=== PATIENT | male | born 1965 | race Caucasian/White ===

== ENCOUNTER 2016-07-30 06:32 | Emergency (ER) | payer BC ==
[2016-07-30] MEDS ORDERED: Zofran 4 MG/2 ML VIAL IV ONE (06:43)
[2016-07-30] MEDS ORDERED: Sodium Chloride 0.9% 1000 ML 1,000 ML IV STA (06:43)
[2016-07-30] MEDS ORDERED: TORAdol 30 mg Injection IV ONE (06:43)
--- NOTE | 2016-07-30 06:49 | ERPHSYRPT ---
- History of Present Illness Historian: patient Exam Limitations: no limitations Timing/Duration: other (patient states pain for 2-3 weeks off and on worse this morning since 2 to 3:00) Activities at Onset: none Quality: sharpness Abdominal Pain Onset Location: flank (right flank) Severity of Pain-Max: moderate Severity of Pain-Current: moderate Modifying Factors: Improves With: nothing Associated Symptoms: back (right flank pain), nausea, vomiting, No chest pain, No diaphoresis, No diarrhea, No fever/chills, No fatigue, No headache, No heartburn, No loss of appetite, No neck pain, No rash, No shortness of breath, No syncope, No testicular pain Previous symptoms: no prior history <KI LESLIE - Last Filed: 07/30/16 07:08> <LOWELL CORDOVA - Last Filed: 07/30/16 09:01> - History of Present Illness Time Seen by Provider: 07/30/16 06:44 Physician History: Is a 50-year-old white male arrives with complaint of right flank pain severe sharp intermittent going on for 2-3 weeks worse since about 2 or 3:00 this morning. Patient states that he has been vomiting. Past medical history patient denies. Past surgical history includes sinus surgery, carpal tunnel. Social history patient denies tobacco alcohol or illicit drug use (KI LESLIE) Allergies/Adverse Reactions: No Known Drug Allergies Allergy (Unverified 07/30/16 06:49) - Review of Systems Constitutional: No Fever, No Chills Eyes: No Symptoms Ears, Nose, & Throat: No Symptoms Respiratory: No Cough, No Dyspnea Cardiac: No Chest Pain, No Edema, No Syncope Abdominal/Gastrointestinal: Nausea, Vomiting, Other (right flank pain), No Abdominal Pain, No Diarrhea Genitourinary Symptoms: Flank Pain (right flank pain), No Dysuria, No Frequency , No Hematuria, No Hesitancy, No Incontinence, No Urgency, No Urinary Retention , No Testicle Pain, No Penile Discharge Musculoskeletal: Back Pain (right flank pain), No Arthralgias, No Neck Pain, No Deformity, No Fall, No Injury, No Joint Redness, No Joint Pain, No Joint Swelling, No Myalgias Skin: No Symptoms, No Cellulitis, No Decubiti, No Induration, No Pruritis, No Rash, No Skin Lesions Neurological: No Dizziness, No Focal Weakness, No Sensory Changes Psychological: No Symptoms Endocrine: No Symptoms All Other Systems: Reviewed and Negative <KI LESLIE - Last Filed: 07/30/16 07:08> - Past Medical History Pertinent Past Medical History: No - Past Surgical History Other Surgical History: sinus surgery, carpal tunnel surgery <KI LESLIE - Last Filed: 07/30/16 07:08> - Physical Exam General Appearance: moderate distress Eye Exam: PERRL/EOMI, eyes nml inspection, other (fundi are unremarkable) Ears, Nose, Throat Exam: normal ENT inspection, pharynx normal, moist mucous membranes Neck Exam: normal inspection, non-tender, supple, full range of motion Respiratory Exam: normal breath sounds, lungs clear, No respiratory distress Cardiovascular Exam: regular rate/rhythm, normal heart sounds Gastrointestinal/Abdomen Exam: soft, normal bowel sounds, other (right flank tenderness), No tenderness, No distention, No mass, No guarding, No ecchymosis, No pulsatile mass, No rebound Back Exam: normal inspection, normal range of motion, CVA tenderness, point tenderness (right flank tenderness), No vertebral tenderness, No rash, No decreased range of motion, No muscle spasm Extremity Exam: normal inspection, normal range of motion, pelvis stable Neurologic Exam: alert, oriented x 3, cooperative, normal mood/affect, nml cerebellar function, sensation nml, No motor deficits Skin Exam: normal color, warm, dry SpO2 Interpretation: normal <IK LESLIE - Last Filed: 07/30/16 07:08> - CT Exams Abdomen/Pelvis CT Interpretation: Discussed w/radiologist (THERE IS A 5MM RIGHT URETER CALCULUS AT L-3 LEVEL WITH MODERATE HYDRONEPHROSISAND PERINEPHRIC STRANDING) <LOWELL CORDOVA - Last Filed: 07/30/16 09:01> Ordered Tests: Active Orders 24 hr Category Date Time Status Clean Catch Urine Specimen STAT Care 07/30/16 07:25 Active IV Insertion STAT Care 07/30/16 06:43 Active ABDOMEN AND PELVIS W/0 CONTRAS [CT] Stat Exams 07/30/16 06:51 Completed AMYLASE Stat Lab 07/30/16 06:50 Completed CBC W DIFF Stat Lab 07/30/16 06:50 Completed CMP Stat Lab 07/30/16 06:50 Completed LIPASE Stat Lab 07/30/16 06:50 Completed UA W/ MICROSCOPIC Stat Lab 07/30/16 06:50 Completed Medication Summary Discontinued Medications Generic Name Dose Route Start Last Admin Trade Name Lizzy PRN Reason Stop Dose Admin Hydromorphone HCl 1 mg 07/30/16 07:48 07/30/16 07:52 Hydromorphone 1 Mg/Ml Ampule IV 07/30/16 07:49 1 mg STAT ONE Administration Hydromorphone HCl Confirm 07/30/16 07:50 Hydromorphone 1 Mg/Ml Ampule Administered 07/30/16 07:51 Dose 1 mg .ROUTE .STK-MED ONE Sodium Chloride 1,000 mls @ 999 mls/hr 07/30/16 06:43 07/30/16 06:52 Sodium Chloride 0.9% 1000 Ml IV 07/30/16 07:43 999 mls/hr .Q1H1M STA Administration Sodium Chloride Confirm 07/30/16 06:51 Sodium Chloride 0.9% 1000 Ml Administered 07/30/16 06:52 Dose 1,000 mls @ ud .ROUTE .STK-MED ONE Ketorolac Tromethamine 30 mg 07/30/16 06:43 07/30/16 06:51 Toradol 30 Mg Injection IV 07/30/16 06:44 30 mg STAT ONE Administration Ketorolac Tromethamine Confirm 07/30/16 06:51 Toradol 30 Mg Injection Administered 07/30/16 06:52 Dose 30 mg .ROUTE .STK-MED ONE Morphine Sulfate 4 mg 07/30/16 07:02 07/30/16 07:04 Morphine Sulfate 4 Mg Inj IV 07/30/16 07:03 4 mg STAT ONE Administration Morphine Sulfate Confirm 07/30/16 07:03 Morphine Sulfate 4 Mg Inj Administered 07/30/16 07:04 Dose 4 mg .ROUTE .STK-MED ONE Ondansetron HCl 4 mg 07/30/16 06:43 07/30/16 06:52 Zofran 4 Mg/2 Ml Vial IV 07/30/16 06:44 4 mg STAT ONE Administration Ondansetron HCl Confirm 07/30/16 06:51 Zofran 4 Mg/2 Ml Vial Administered 07/30/16 06:52 Dose 4 mg .ROUTE .STK-MED ONE Lab/Rad Data: Laboratory Result Diagrams 07/30/16 06:50 07/30/16 06:50 Laboratory Results 07/30/16 07/30/16 07/30/16 Range/Units 06:50 06:50 06:50 WBC 9.2 (4.0-10.5) K/mm3 RBC 5.26 (4.1-5.6) M/mm3 Hgb 15.5 (12.5-18.0) gm/dl Hct 45.5 (42-50) % MCV 86.5 (78-100) fl MCH 29.5 (26-32) pg MCHC 34.1 (32-36) g/dl RDW 13.3 (11.5-14.0) % Plt Count 189 (150-450) K/mm3 MPV 10.5 H (6-9.5) fl Gran % 78.1 H (36.0-66.0) % Lymphocytes % 15.0 L (24.0-44.0) % Monocytes % 5.9 (0.0-12.0) % Eosinophils % 0.8 (0.00-5.0) % Basophils % 0.2 (0.0-0.4) % Basophils # 0.02 (0-0.4) Sodium 142 (136-145) mEq/L Potassium 3.2 L (3.5-5.1) mEq/L Chloride 103 (98-107) mEq/L Carbon Dioxide 25.6 (21-32) mEq/L Anion Gap 16.3 H (5-15) MEQ/L BUN 23 H (9-20) mg/dL Creatinine 1.63 H (0.55-1.30) mg/dl Estimated GFR 47 ML/MIN Glucose 170 H (70-110) MG/DL Calcium 9.4 (8.5-10.1) mg/dL Total Bilirubin 0.5 (0.2-1.0) mg/dL AST 16 (15-37) U/L ALT 34 (12-78) U/L Alkaline Phosphatase 60 (46-116) U/L Serum Total Protein 7.1 (6.4-8.2) gm/dL Albumin 3.9 (3.4-5.0) g/dL Amylase 26 (25-115) U/L Lipase 113 (73-393) U/L Ur Collection Type VOID Urine Color YELLOW (YELLOW) Urine Appearance CLEAR (CLEAR) Urine pH 6.0 (5-6) Ur Specific Hitchcock 1.025 (1.005-1.025) Urine Protein NEGATIVE (Negative) Urine Glucose (UA) NEGATIVE (NEGATIVE) mg/dL Urine Ketones NEGATIVE (NEGATIVE) Urine Nitrite NEGATIVE (NEGATIVE) Urine Bilirubin NEGATIVE (NEGATIVE) Urine Urobilinogen 0.2 (0-1) mg/dL Urine WBC (Auto) NEGATIVE (NEGATIVE) Urine RBC (Auto) TRACE-INTACT (0-5) [place]/ul Urine Microscopic RBC 0-2 (0-2) /HPF Urine Microscopic WBC 0-2 (0-5) /HPF Ur Epithelial Cells RARE (FEW) /HPF Urine Bacteria RARE (NEGATIVE) /HPF Urine Mucus SLIGHT (NEGATIVE) /HPF Specimen Received 07/30/16 0645 - Progress Progress: improved <KI LESLIE - Last Filed: 07/30/16 07:08> - Progress Discussed with Dr.: Other (DISCUSSED WITH DR BURNETT AT 0803 ACCEPTS TRANSFER TO [facility]) <LOWELL CORDOVA - Last Filed: 07/30/16 09:01> - Progress Progress Note: 07/30/16 07:08 This is a 50-year-old white male arrives with complaint of pain in his right flank off and on for 2-3 weeks he has some vomiting associated with that he states the pain began again this morning at 2 or 3:00 he is complaining of severe pain he is moving randomly has pain with palpation in the right flank. Patient has been given IV normal saline Toradol Zofran and morphine. It is shift change case is discussed with Dr. Cordova he will assume care of the patient. (KI LESLIE) 07/30/16 07:51 PATIENT GIVEN DILAUDID 1MG IV (LOWELL CORDOVA) <KI LESLIE - Last Filed: 07/30/16 07:08> - Departure Time of Disposition: 09:00 Departure Disposition: Transfer Critical Care Time: No <LOWELL CORDOVA - Last Filed: 07/30/16 09:01> - Departure Clinical Impression: RIGHT PROXIMAL URETER CALCULUS Condition: Stable Referrals: ALEKSANDRA TERRELL PA [NON-STAFF PHY W/O PRIVILEGES] -
[2016-07-30] MEDS ORDERED: Zofran 4 MG/2 ML VIAL ONE (06:51)
[2016-07-30] MEDS ORDERED: TORAdol 30 mg Injection ONE (06:51)
[2016-07-30] MEDS ORDERED: Sodium Chloride 0.9% 1000 ML 1,000 ML ONE (06:51)
[2016-07-30 06:54] LABS: BASOPHIL % 0.2 % (0.0-0.4); Eosinophil % 0.8 % (0.00-5.0); Granulocytes % 78.1 % (36.0-66.0); Mean Cell Volume 86.5 fl (78-100); Mean Corpuscular Hemoglobin 29.5 pg (26-32); Mean Platelet Volume 10.5 fl (6-9.5); Monocytes % 5.9 % (0.0-12.0); Platelet Count 189 K/mm3 (150-450); Red Blood Count 5.26 M/mm3 (4.1-5.6); Red Cell Distribution Width 13.3 % (11.5-14.0); White Blood Count 9.2 K/mm3 (4.0-10.5)
[2016-07-30] MEDS ORDERED: MORPHINE SULFATE 4 MG INJ IV ONE (07:02)
[2016-07-30] MEDS ORDERED: MORPHINE SULFATE 4 MG INJ ONE (07:03)
[2016-07-30 07:05] LABS: COMPLETE URINE MICROSCOPIC? YES; Collection Type VOID
[2016-07-30 07:21] LABS: Mucus SLIGHT /HPF (NEGATIVE); WBC 0-2 /HPF (0-5)
[2016-07-30 07:22] LABS: Bacteria RARE /HPF (NEGATIVE); Epithelial Cells RARE /HPF (FEW)
[2016-07-30 07:42] LABS: ALBUMIN 3.9 g/dL (3.4-5.0); ANION GAP 16.3 MEQ/L (5-15); BILIRUBIN,TOTAL 0.5 mg/dL (0.2-1.0); Carbon Dioxide 25.6 mEq/L (21-32); Potassium 3.2 mEq/L (3.5-5.1); Total Protein 7.1 gm/dL (6.4-8.2)
[2016-07-30] MEDS ORDERED: Hydromorphone 1 mg/ml Ampule IV ONE (07:48)
[2016-07-30] MEDS ORDERED: Hydromorphone 1 mg/ml Ampule ONE (07:50)
[2016-07-30 08:00] VITALS: BP 127/87; PULSE 77; O2SAT 99
--- NOTE | 2016-07-30 08:54 | XRAY ---
Indication: Right flank pain. Multiple contiguous axial images obtained through the abdomen and pelvis without contrast as ordered. Comparison: None. Lung bases demonstrates very minimal bibasilar dependent atelectasis. Heart is not enlarged. 5 mm right mid ureteral calculus, approximately L3 level. Proximal ureter is mildly prominent and there is moderate hydronephrosis with minimal perinephric stranding consistent with obstructive uropathy. No left-sided renal calculus or evidence for obstructive uropathy. Noncontrasted stomach and bowel loops appear nonobstructed. Normal appendix. No free fluid/air. Remaining liver, gallbladder, pancreas, spleen, adrenal glands, and bladder appear unremarkable. Minimal aortoiliac calcifications without AAA or pathologic retroperitoneal lymphadenopathy. Osseous structures intact with minimal degenerative changes throughout the spine. Impression: 1. 5 mm right mid ureteral calculus producing high-grade partial obstruction as detailed. 2. Remaining CT abdomen/pelvis without contrast is negative. CT DI 23.69
== END 2016-07-30 09:02 | disposition short-term general hospital (02) ==
LOC: ED 06:32
DX: N20.1 Calculus of ureter (principal); R10.9 Unspecified abdominal pain; R11.2 Nausea with vomiting, unspecified
CPT/HCPCS: 36000; 36415; 74176; 80053; 81000; 82150; 83690; 85025; 96360; 96374; 96375; 99285; J1170; J1885; J2270; J2405